=== PATIENT | male | born 1995 | race Two or more races ===

== ENCOUNTER 2024-03-03 16:35 | Emergency (ER) | payer MEDICAID ==
[~2024-03-03] VITALS: Ht 175.3 cm; Wt 73.9 kg
[2024-03-03 16:44] VITALS: BP 147/86; PULSE 78; TEMP 98.9; O2SAT 100
[2024-03-03] MEDS: ketorolac trometh 15mg/ml vial 15 MG/ML ML IM ONE (17:49)
[2024-03-03 18:23] VITALS: RESP 20
== END 2024-03-03 18:24 | disposition home or self-care (01) ==
LOC: ER 16:36
DX: S29.9XXA Unspecified injury of thorax, initial encounter (principal); M25.511 Pain in right shoulder; M54.2 Cervicalgia; M54.50 Low back pain, unspecified; V86.99XA Unspecified occupant of other special all-terrain or other off-road motor vehicle injured in nontraffic accident, initial encounter; Y93.89 Activity, other specified; Y92.89 Other specified places as the place of occurrence of the external cause; Y99.8 Other external cause status
CPT/HCPCS: 71111; 73030; 96372; 99284; J1885